=== PATIENT | female | born 1990 | race Caucasian/White ===

== ENCOUNTER 2021-06-18 13:58 | Emergency (ER) | payer SELFPAY ==
[~2021-06-18] VITALS: Ht 172.7 cm; Wt 90.9 kg
--- NOTE | 2021-06-18 15:01 | RAD ---
Right shoulder 3 views. HISTORY: Pain, lifting injury 3 views were taken of the right shoulder. There is not evidence of an acute fracture or osseous abnor mality. IMPRESSION: 1. Negative right shoulder. Electronically signed by: Julius Croft MD (06/18/2021 2:58 PM) [facility]
[2021-06-18] MEDS ORDERED: HYDROcodone/APAP 5/325MG 1 TAB TABLET PO ONE (16:15)
--- NOTE | 2021-06-18 16:25 | PHYS DOC ---
Past History Past Surgical History: , Hysterectomy (RICARDO MEJÍA APRN) Alcohol Use: None (RICARDO MEJÍA APRN) General Adult EDM: Chief Complaint: SHOULDER INJURY HPI: HPI: Patient is a 31-year-old female who presents to the emergency department today for right shoulder pain that occurred after she was helping her grandmother up and felt a pop in her shoulder at 11:00 this morning. Patient rates her pain 7 out of 10. She states that she has been taking ibuprofen and ice. Patient reports pain with range of motion denies any decreased sensation in her extremity or wounds. (RICARDO MEJÍA APRN) Review of Systems: Review of Systems: Constitutional: negative unless reported in HPI Eyes: negative unless reported in HPI HENT: negative unless reported in HPI Respiratory: negative unless reported in HPI Cardiovascular: negative unless reported in HPI GI: negative unless reported in HPI : negative unless reported in HPI Musculoskeletal: negative unless reported in HPI Integument: negative unless reported in HPI Neurologic: negative unless reported in HPI Endocrine: negative unless reported in HPI Lymphatic: negative unless reported in HPI Psychiatric: negative unless reported in HPI (RICARDO MEJÍA APRN) Current Medications: Current Meds: Current Medications Medications (Trade) Dose Ordered Sig/Wilber Start Time Stop Time Status Last Admin Dose Admin Acetaminophen/ Hydrocodone Bitart (Lortab 5/325) 1 tab 1X ONCE 06/18/21 16:15 06/18/21 16:16 UNV (RICARDO MEJÍA APRN) Allergies: Allergies: Allergies Coded Allergies Type Severity Reaction Last Updated Verified No Known Drug Allergies 06/18/21 No (RICARDO MEJÍA APRN) Physical Exam: PE: Constitutional: Well developed, well nourished, no acute distress, non-toxic appearance. [] HENT: Normocephalic, atraumatic, bilateral external ears normal, oropharynx moist, no oral exudates, nose normal. [] Eyes: PERRL, EOMI, conjunctiva normal, no discharge. [] Neck: Normal range of motion, no tenderness, supple, no stridor. [] Cardiovascular: Normal peripheral perfusion Lungs & Thorax: Normal work of breathing, no tachypnea Abdomen: Soft and flat Skin: Warm, dry, no erythema, no rash. [] Back: Normal range of motion Extremities: No tenderness, no cyanosis, no clubbing, ROM intact, no edema. [] Right upper extremity: Pain with palpation to AC joint of right shoulder, no crepitus, no obvious deformity, neuro intact, limited range of motion due to pain. Range of motion is intact to elbow and wrist. Neurologic: Alert and oriented X 3, normal motor function, normal sensory function, no focal deficits noted. [] Psychologic: Affect normal, judgement normal, mood normal. [] (RICARDO MEJÍA APRN) Current Patient Data: Vital Signs: Vital Signs Date Time Temp Pulse Resp B/P (MAP) Pulse Ox O2 Delivery O2 Flow Rate FiO2 06/18/21 15:12 98.3 104 18 170/115 (133) 96 Room Air (RICARDO MEJÍA APRN) EKG: EKG: [] (RICARDO MEJÍA APRN) Radiology/Procedures: Radiology/Procedures: []PROCEDURE: CT ANGIOGRAPHY CHEST PROCEDURE: SHOULDER 2+V RIGHT Right shoulder 3 views. HISTORY: Pain, lifting injury 3 views were taken of the right shoulder. There is not evidence of an acute fracture or osseous abnormality. IMPRESSION: 1. Negative right shoulder. Electronically signed by: Julius Rhodes MD (06/18/2021 2:58 PM) [facility] DICTATED AND SIGNED BY: JULIUS RHODES MD DATE: 06/18/21 1458 CC: KIMBERLEE CARSON DO; EMERGENCY,DEPARTMENT; PCP,NO ~MTH0 0 (RICARDO MEJÍA APRN) Heart Score: C/O Chest Pain: N/A Risk Factors: Risk Factors: DM, Current or recent (<one month) smoker, HTN, HLP, family history of CAD, obesity. Risk Scores: Score 0 - 3: 2.5% MACE over next 6 weeks - Discharge Home Score 4 - 6: 20.3% MACE over next 6 weeks - Admit for Clinical Observation Score 7 - 10: 72.7% MACE over next 6 weeks - Early Invasive Strategies (RICARDO MEJÍA APRN) Course & Med Decision Making: Course & Med Decision Making Pertinent Labs and Imaging studies reviewed. (See chart for details) [] Patient presents to the emergency department for right shoulder pain after helping her grandmother up and felt a pop. X-ray was performed that showed no acute findings. Patient is tender along the bicep muscle tendon at the shoulder. Patient is likely experiencing tendinitis versus bursitis. Patient was treated with pain medication and her shoulder was placed in a sling for comfort. Patient advised to continue taking anti-inflammatory medications over the sling for comfort. I discussed with patient all findings and diagnostic testing as well as the need to follow-up with PCP for further evaluation and treatment or return to the ER if any new or worsening symptoms. Strict return precautions were also discussed at length. Patient voiced understanding and agreement with the plan. Patient is hemodynamically stable at the time of disposition. (RICARDO MEJÍA APRN) Dragon Disclaimer: Dragon Disclaimer: This electronic medical record was generated, in whole or in part, using a voice recognition dictation system. (RICARDO MEJÍA APRN) Attending Co-Sign The patient was seen and interviewed as well as examined at the bedside. The chart was reviewed. The case was discussed. Agree with the plan of care. (KIMBERLEE CARSON DO) Departure Departure: Impression: Primary Impression: Tendonitis Disposition: HOME / SELF CARE / HOMELESS Condition: GOOD Referrals: PCP,NO (PCP) Patient Instructions: Bicipital Tendonitis Additional Instructions: You were seen in the emergency department today for shoulder pain. X-ray was performed in the emergency department that was negative for any acute findings. As we discussed, you are tender along your tendon you may be experiencing tendinitis. Please rest your shoulder and wear the sling for comfort. You can also apply ice. Take anti-inflammatory medications at home. Follow-up with your primary care provider tomorrow regarding your ER visit. Please return to the emergency department if you develop worsening of your pain, injury, decreased range of motion or decrease sensation in your extremity. RICARDO MEJÍA APRN Jun 18, 2021 16:25 KIMBERLEE CARSON DO Jun 19, 2021 10:04
[2021-06-18 16:32] VITALS: BP 150/90
== END 2021-06-18 16:33 | disposition home or self-care (01) ==
LOC: ER 13:58
DX: M77.8 Other enthesopathies, not elsewhere classified (principal)
CPT/HCPCS: 73030; 99283